=== PATIENT | female | born 1945 | race Caucasian/White ===

== ENCOUNTER 2023-05-10 08:43 | Inpatient (IN) | payer MEDICARE, MEDICAID ==
[~2023-05-10] VITALS: Ht 167.6 cm; Wt 86.8 kg
[2023-05-10] MEDS ORDERED: LORazepam 2 MG TABLET PO PRN (11:00)
[2023-05-10] MEDS ORDERED: HALOPERIDOL 5 MG TABLET PO PRN (11:00)
[2023-05-10 13:11] VITALS: BP 170/93; PULSE 97; RESP 18; TEMP 97
[2023-05-10] MEDS ORDERED: AmLODIPine BESYLATE 5 MG TABLET PO ONE (14:15)
[2023-05-10 15:27] VITALS: RESP 17
[2023-05-10] MEDS: DOCUSATE SODIUM 100 MG CAPSULE PO SCH (18:07)
[2023-05-10] MEDS: CEPHALEXIN MONOHYDRATE 500 MG CAPSULE PO SCH (18:08)
[2023-05-10 20:45] VITALS: BP 139/82; PULSE 89; RESP 18; TEMP 97.4
[2023-05-11] MEDS: DOCUSATE SODIUM 100 MG CAPSULE PO SCH ×3 (09:00→16:56)
[2023-05-11] MEDS: PANTOPRAZOLE SODIUM 40 MG DR TABLET PO SCH ×2 (09:00→10:55)
[2023-05-11] MEDS: AmLODIPine BESYLATE 10 MG TABLET PO SCH ×2 (09:00→10:55)
[2023-05-11] MEDS: CEPHALEXIN MONOHYDRATE 500 MG CAPSULE PO SCH ×4 (09:00→16:55)
[2023-05-11 10:08] VITALS: BP 133/76; PULSE 79; RESP 18; TEMP 97.6
[2023-05-11] MEDS: OLANZapine 2.5 MG TABLET PO SCH ×2 (13:20→21:18)
[2023-05-11 20:35] VITALS: BP 137/87; PULSE 85; RESP 18; TEMP 98.1
[2023-05-11] MEDS: ZOLPIDEM TARTRATE 10 MG TABLET PO PRN (21:18)
[2023-05-12] MEDS: OLANZapine 2.5 MG TABLET PO SCH ×2 (09:01→20:37)
[2023-05-12] MEDS: CEPHALEXIN MONOHYDRATE 500 MG CAPSULE PO SCH (09:02)
[2023-05-12] MEDS: DOCUSATE SODIUM 100 MG CAPSULE PO SCH ×2 (09:08→16:03)
[2023-05-12] MEDS: PANTOPRAZOLE SODIUM 40 MG DR TABLET PO SCH (09:08)
[2023-05-12] MEDS: AmLODIPine BESYLATE 10 MG TABLET PO SCH (09:08)
[2023-05-12 10:29] VITALS: BP 136/90; PULSE 102; RESP 18; TEMP 97.8
[2023-05-12 21:16] VITALS: BP 151/73; PULSE 90; RESP 18; TEMP 97.7
[2023-05-13] MEDS: OLANZapine 2.5 MG TABLET PO SCH ×2 (08:32→20:41)
[2023-05-13] MEDS: PANTOPRAZOLE SODIUM 40 MG DR TABLET PO SCH (08:33)
[2023-05-13] MEDS: AmLODIPine BESYLATE 10 MG TABLET PO SCH (08:33)
[2023-05-13 10:42] VITALS: BP 153/79; PULSE 79; RESP 18; TEMP 98.2
[2023-05-13] MEDS ORDERED: MAGNESIUM HYDROXIDE SUSPENSION 30 ML UDCUP PO PRN (11:45)
[2023-05-13] MEDS ORDERED: PETROLATUM,WHITE 28 GM JELLY TP PRN (11:45)
[2023-05-13] MEDS ORDERED: NICOTINE 14 MG/24 HOUR PATCH TD PRN (11:45)
[2023-05-13] MEDS ORDERED: ALBUTEROL SULFATE HFA 90 MCG/PUFF 8 GM INHALER IH PRN (11:45)
[2023-05-13] MEDS ORDERED: DOCUSATE SODIUM 100 MG CAPSULE PO PRN (11:45)
[2023-05-13] MEDS ORDERED: CloNIDine HCL 0.1 MG TABLET PO PRN (11:45)
[2023-05-13] MEDS ORDERED: ACETAMINOPHEN 325 MG TABLET PO PRN (11:45)
[2023-05-13] MEDS ORDERED: GuaiFENesin/D-METHORPHAN [SUGAR-FREE] 200-20MG/10 ML SYRUP UDCUP PO PRN (11:45)
[2023-05-13] MEDS ORDERED: MAG HYDROX/ALUMINUM HYD/SIMETH ES 30 ML SUSPENSION UDCUP PO PRN (11:45)
[2023-05-13] MEDS ORDERED: ONDANSETRON HCL 4 MG TABLET PO PRN (11:45)
[2023-05-13] MEDS: ZOLPIDEM TARTRATE 10 MG TABLET PO PRN (20:41)
[2023-05-13 21:24] VITALS: BP 141/81; PULSE 97; RESP 18; TEMP 97.3
[2023-05-14 10:23] VITALS: BP 152/66; PULSE 100; RESP 18; TEMP 97.2
[2023-05-14] MEDS: AmLODIPine BESYLATE 10 MG TABLET PO SCH (10:28)
[2023-05-14] MEDS: IBUPROFEN 400 MG TABLET PO PRN (10:28)
[2023-05-14] MEDS: LOPERAMIDE HCL 2 MG CAPSULE PO PRN (10:28)
[2023-05-14] MEDS: OLANZapine 2.5 MG TABLET PO SCH ×2 (10:28→20:50)
[2023-05-14] MEDS: PANTOPRAZOLE SODIUM 40 MG DR TABLET PO SCH (10:28)
[2023-05-14 20:00] VITALS: BP 150/70; PULSE 92; RESP 18; TEMP 97.2
[2023-05-15 09:00] VITALS: BP 149/72; PULSE 97; RESP 18; TEMP 97.6
[2023-05-15] MEDS: PANTOPRAZOLE SODIUM 40 MG DR TABLET PO SCH (10:07)
[2023-05-15] MEDS: AmLODIPine BESYLATE 10 MG TABLET PO SCH (10:07)
[2023-05-15] MEDS: OLANZapine 2.5 MG TABLET PO SCH ×2 (10:07→20:35)
[2023-05-15 17:55] VITALS: BP 149/73; PULSE 102; RESP 18; TEMP 98.9
[2023-05-15] MEDS: LOPERAMIDE HCL 2 MG CAPSULE PO PRN (17:55)
[2023-05-15] MEDS: IBUPROFEN 400 MG TABLET PO PRN (17:55)
[2023-05-15 19:02] VITALS: BP 145/82; PULSE 100; RESP 19; TEMP 98
[2023-05-15 22:01] VITALS: BP 126/75; PULSE 106; RESP 20; TEMP 99.1
[2023-05-16 09:00] VITALS: BP 146/71; PULSE 93; RESP 16; TEMP 97.7
[2023-05-16] MEDS: PANTOPRAZOLE SODIUM 40 MG DR TABLET PO SCH (09:03)
[2023-05-16] MEDS: AmLODIPine BESYLATE 10 MG TABLET PO SCH (09:03)
[2023-05-16] MEDS: OLANZapine 2.5 MG TABLET PO SCH ×2 (09:04→20:37)
[2023-05-16] MEDS: ZOLPIDEM TARTRATE 10 MG TABLET PO PRN (20:37)
[2023-05-16 22:17] VITALS: BP 121/65; PULSE 98; RESP 18; TEMP 97
[2023-05-17] MEDS: AmLODIPine BESYLATE 10 MG TABLET PO SCH (08:39)
[2023-05-17] MEDS: PANTOPRAZOLE SODIUM 40 MG DR TABLET PO SCH (08:40)
[2023-05-17] MEDS: OLANZapine 2.5 MG TABLET PO SCH ×2 (08:40→21:09)
[2023-05-17 20:57] VITALS: BP 151/70; PULSE 98; RESP 18; TEMP 98.6
[2023-05-17] MEDS: ZOLPIDEM TARTRATE 10 MG TABLET PO PRN (21:09)
[2023-05-18 09:08] VITALS: BP 157/83; PULSE 92; RESP 18; TEMP 97.8
[2023-05-18] MEDS: AmLODIPine BESYLATE 10 MG TABLET PO SCH (09:20)
[2023-05-18] MEDS: OLANZapine 2.5 MG TABLET PO SCH ×2 (09:20→20:56)
[2023-05-18] MEDS: PANTOPRAZOLE SODIUM 40 MG DR TABLET PO SCH (09:20)
[2023-05-18] MEDS: ZOLPIDEM TARTRATE 10 MG TABLET PO PRN (20:56)
[2023-05-18 21:22] VITALS: BP 129/69; PULSE 88; RESP 18; TEMP 97.8
[2023-05-19 07:58] LABS: ALBUMIN 2.9 g/dL (3.4-5.0); BILIRUBIN,TOTAL 0.2 mg/dL (0.1-1.0); CALCIUM, TOTAL 9.2 mg/dL (8.8-10.5); CHOL/HDL RATIO 4.2 (3.9-5.7); CREATININE 1.43 mg/dL (0.60-1.30); POTASSIUM 3.8 mmol/L (3.5-5.1); THYROID STIMULATING HORMONE 1.3 uIU/mL (0.36-3.74); TOTAL PROTEIN, SERUM 6.7 g/dL (6.4-8.2)
[2023-05-19 08:00] VITALS: BP 146/67; PULSE 91; RESP 18; TEMP 98.1
[2023-05-19] MEDS: OLANZapine 2.5 MG TABLET PO SCH ×2 (09:45→21:28)
[2023-05-19] MEDS: PANTOPRAZOLE SODIUM 40 MG DR TABLET PO SCH (09:45)
[2023-05-19] MEDS: AmLODIPine BESYLATE 10 MG TABLET PO SCH (09:45)
[2023-05-19 20:45] VITALS: BP 156/67; PULSE 84; RESP 18; TEMP 98
[2023-05-19] MEDS: ZOLPIDEM TARTRATE 10 MG TABLET PO PRN (21:28)
[2023-05-20] MEDS: OLANZapine 2.5 MG TABLET PO SCH ×2 (08:57→21:22)
[2023-05-20] MEDS: PANTOPRAZOLE SODIUM 40 MG DR TABLET PO SCH (09:01)
[2023-05-20] MEDS: AmLODIPine BESYLATE 10 MG TABLET PO SCH (09:01)
[2023-05-20 20:37] VITALS: BP 132/71; PULSE 62; RESP 18; TEMP 98.1
[2023-05-20] MEDS: ZOLPIDEM TARTRATE 10 MG TABLET PO PRN (21:22)
[2023-05-21] MEDS: PANTOPRAZOLE SODIUM 40 MG DR TABLET PO SCH (08:32)
[2023-05-21] MEDS: OLANZapine 2.5 MG TABLET PO SCH ×2 (08:32→21:00)
[2023-05-21] MEDS: AmLODIPine BESYLATE 10 MG TABLET PO SCH (08:32)
[2023-05-21 08:33] VITALS: BP 158/72; PULSE 85; RESP 18; TEMP 97
[2023-05-21 08:39] VITALS: BP 158/72; PULSE 85; RESP 18; TEMP 97
[2023-05-21 20:14] VITALS: BP 134/62; PULSE 89; RESP 17; TEMP 97.8
[2023-05-21] MEDS: ZOLPIDEM TARTRATE 10 MG TABLET PO PRN (21:00)
[2023-05-22] MEDS: PANTOPRAZOLE SODIUM 40 MG DR TABLET PO SCH (08:32)
[2023-05-22] MEDS: AmLODIPine BESYLATE 10 MG TABLET PO SCH (08:32)
[2023-05-22] MEDS: OLANZapine 2.5 MG TABLET PO SCH ×2 (08:32→20:53)
[2023-05-22 11:30] VITALS: BP 145/71; PULSE 89; RESP 18; TEMP 99.9
[2023-05-22] MEDS: ZOLPIDEM TARTRATE 10 MG TABLET PO PRN (20:52)
[2023-05-22 21:30] VITALS: RESP 17
[2023-05-23] MEDS: OLANZapine 2.5 MG TABLET PO SCH ×2 (08:56→21:03)
[2023-05-23] MEDS: AmLODIPine BESYLATE 10 MG TABLET PO SCH (08:57)
[2023-05-23] MEDS: PANTOPRAZOLE SODIUM 40 MG DR TABLET PO SCH (08:57)
[2023-05-23 10:59] VITALS: BP 152/73; PULSE 90; RESP 18; TEMP 98.1
[2023-05-23 20:40] VITALS: BP 148/71; PULSE 88; RESP 18; TEMP 98.3
[2023-05-23] MEDS: ZOLPIDEM TARTRATE 10 MG TABLET PO PRN (21:03)
[2023-05-24 07:42] LABS: CREATININE 1.54 mg/dL (0.60-1.30)
[2023-05-24] MEDS: OLANZapine 2.5 MG TABLET PO SCH ×2 (09:04→21:00)
[2023-05-24] MEDS: PANTOPRAZOLE SODIUM 40 MG DR TABLET PO SCH (09:04)
[2023-05-24] MEDS: AmLODIPine BESYLATE 10 MG TABLET PO SCH (09:04)
[2023-05-24 10:16] VITALS: BP 137/63; PULSE 87; RESP 18; TEMP 97.6
[2023-05-24] MEDS: ZOLPIDEM TARTRATE 10 MG TABLET PO PRN (21:00)
[2023-05-24 21:26] VITALS: BP 127/66; PULSE 88; RESP 18; TEMP 98.9
[2023-05-25 09:37] VITALS: BP 137/81; PULSE 81; RESP 17; TEMP 97.7
[2023-05-25] MEDS: OLANZapine 2.5 MG TABLET PO SCH ×2 (11:38→21:04)
[2023-05-25] MEDS: AmLODIPine BESYLATE 10 MG TABLET PO SCH (11:52)
[2023-05-25] MEDS: PANTOPRAZOLE SODIUM 40 MG DR TABLET PO SCH (11:52)
[2023-05-25] MEDS: ZOLPIDEM TARTRATE 10 MG TABLET PO PRN (21:05)
[2023-05-25 21:06] VITALS: BP 127/68; PULSE 97; RESP 18; TEMP 98.7
[2023-05-26] MEDS: AmLODIPine BESYLATE 10 MG TABLET PO SCH (09:01)
[2023-05-26] MEDS: OLANZapine 2.5 MG TABLET PO SCH ×2 (09:01→21:27)
[2023-05-26] MEDS: PANTOPRAZOLE SODIUM 40 MG DR TABLET PO SCH (09:01)
[2023-05-26 09:16] VITALS: BP 144/89; PULSE 86; RESP 18; TEMP 97.8
[2023-05-26 20:22] VITALS: BP 135/81; PULSE 80; RESP 18; TEMP 97.8
[2023-05-27] MEDS: PANTOPRAZOLE SODIUM 40 MG DR TABLET PO SCH (08:29)
[2023-05-27] MEDS: OLANZapine 2.5 MG TABLET PO SCH ×2 (08:29→20:57)
[2023-05-27] MEDS: AmLODIPine BESYLATE 10 MG TABLET PO SCH (08:29)
[2023-05-27 09:00] VITALS: BP 144/69; PULSE 87; RESP 18; TEMP 98.3
[2023-05-27] MEDS: ZOLPIDEM TARTRATE 10 MG TABLET PO PRN (20:57)
[2023-05-27 21:50] VITALS: TEMP 101.2
[2023-05-27 22:21] VITALS: BP 142/66; PULSE 86; RESP 18; TEMP 100.1
[2023-05-27 23:07] LABS: COVID AG,FIA SOURCE NASAL SWAB
[2023-05-27 23:14] LABS: SARS-COV2 (COVID) ANTIGEN,FIA Negative (Negative)
[2023-05-28 00:30] VITALS: TEMP 98.2
[2023-05-28 06:17] VITALS: TEMP 97.1
[2023-05-28 08:00] VITALS: BP 143/71; PULSE 90; RESP 18; TEMP 98.3
[2023-05-28] MEDS: PANTOPRAZOLE SODIUM 40 MG DR TABLET PO SCH (09:20)
[2023-05-28] MEDS: AmLODIPine BESYLATE 10 MG TABLET PO SCH (09:20)
[2023-05-28] MEDS: OLANZapine 2.5 MG TABLET PO SCH ×2 (09:21→21:14)
[2023-05-28] MEDS: ZOLPIDEM TARTRATE 10 MG TABLET PO PRN (21:14)
[2023-05-28 21:27] VITALS: BP 127/62; PULSE 77; RESP 18; TEMP 98.1
[2023-05-29 08:00] VITALS: BP 140/72; PULSE 95; RESP 16; TEMP 97.6
[2023-05-29] MEDS: AmLODIPine BESYLATE 10 MG TABLET PO SCH (10:35)
[2023-05-29] MEDS: OLANZapine 2.5 MG TABLET PO SCH ×2 (10:35→20:53)
[2023-05-29] MEDS: PANTOPRAZOLE SODIUM 40 MG DR TABLET PO SCH (10:35)
[2023-05-29] MEDS: ZOLPIDEM TARTRATE 10 MG TABLET PO PRN (21:16)
[2023-05-29 21:47] VITALS: BP 141/66; PULSE 87; RESP 18; TEMP 98.3
[2023-05-30 08:36] VITALS: BP 136/80; PULSE 86; RESP 16; TEMP 97.9
[2023-05-30] MEDS: AmLODIPine BESYLATE 10 MG TABLET PO SCH (09:21)
[2023-05-30] MEDS: PANTOPRAZOLE SODIUM 40 MG DR TABLET PO SCH (09:22)
[2023-05-30] MEDS: OLANZapine 2.5 MG TABLET PO SCH ×2 (09:22→21:15)
[2023-05-30 21:12] VITALS: BP 130/67; PULSE 85; RESP 18; TEMP 98
[2023-05-30] MEDS: ZOLPIDEM TARTRATE 10 MG TABLET PO PRN (21:15)
[2023-05-31 07:11] LABS: CALCIUM, TOTAL 9.2 mg/dL (8.8-10.5); CREATININE 1.4 mg/dL (0.60-1.30); POTASSIUM 3.9 mmol/L (3.5-5.1)
[2023-05-31] MEDS: AmLODIPine BESYLATE 10 MG TABLET PO SCH (08:53)
[2023-05-31] MEDS: PANTOPRAZOLE SODIUM 40 MG DR TABLET PO SCH (08:53)
[2023-05-31 09:00] VITALS: BP 145/68; PULSE 92; RESP 18; TEMP 98.1
[2023-05-31] MEDS: OLANZapine 2.5 MG TABLET PO SCH ×2 (12:12→21:11)
[2023-05-31 20:00] VITALS: BP 144/73; PULSE 87; RESP 19; TEMP 98
[2023-06-01 08:00] VITALS: BP 147/79; PULSE 91; RESP 18; TEMP 97.3
[2023-06-01] MEDS: PANTOPRAZOLE SODIUM 40 MG DR TABLET PO SCH (09:36)
[2023-06-01] MEDS: OLANZapine 2.5 MG TABLET PO SCH ×2 (09:36→20:59)
[2023-06-01] MEDS: AmLODIPine BESYLATE 10 MG TABLET PO SCH (09:36)
[2023-06-01 21:30] VITALS: BP 123/64; PULSE 81; RESP 18; TEMP 98.6
[2023-06-02 08:00] VITALS: BP 164/75; PULSE 99; RESP 18; TEMP 97.8
[2023-06-02] MEDS: PANTOPRAZOLE SODIUM 40 MG DR TABLET PO SCH (09:05)
[2023-06-02] MEDS: OLANZapine 2.5 MG TABLET PO SCH ×2 (09:05→20:45)
[2023-06-02] MEDS: AmLODIPine BESYLATE 10 MG TABLET PO SCH (09:05)
[2023-06-02 21:57] VITALS: BP 131/74; PULSE 87; RESP 18; TEMP 98
[2023-06-03] MEDS: AmLODIPine BESYLATE 10 MG TABLET PO SCH (08:57)
[2023-06-03] MEDS: OLANZapine 2.5 MG TABLET PO SCH ×2 (08:58→21:02)
[2023-06-03] MEDS: PANTOPRAZOLE SODIUM 40 MG DR TABLET PO SCH (08:58)
[2023-06-03 10:14] VITALS: BP 138/74; PULSE 90; RESP 18; TEMP 97.2
[2023-06-03 20:00] VITALS: BP 135/81; PULSE 88; RESP 18; TEMP 98.1
[2023-06-04] MEDS: PANTOPRAZOLE SODIUM 40 MG DR TABLET PO SCH (08:34)
[2023-06-04] MEDS: AmLODIPine BESYLATE 10 MG TABLET PO SCH (08:35)
[2023-06-04] MEDS: OLANZapine 2.5 MG TABLET PO SCH ×2 (08:35→20:45)
[2023-06-04 09:08] VITALS: BP 148/81; PULSE 94; RESP 18; TEMP 98.1
[2023-06-04 21:41] VITALS: BP 134/78; PULSE 81; RESP 17; TEMP 98.5
[2023-06-05] MEDS: AmLODIPine BESYLATE 10 MG TABLET PO SCH (08:51)
[2023-06-05] MEDS: PANTOPRAZOLE SODIUM 40 MG DR TABLET PO SCH (08:51)
[2023-06-05] MEDS: OLANZapine 2.5 MG TABLET PO SCH ×2 (08:51→20:50)
[2023-06-05 09:15] VITALS: BP 153/77; PULSE 93; RESP 18; TEMP 97.8
[2023-06-05 21:45] VITALS: BP 136/74; PULSE 89; RESP 18; TEMP 97.1
[2023-06-06] MEDS: PANTOPRAZOLE SODIUM 40 MG DR TABLET PO SCH (08:21)
[2023-06-06] MEDS: AmLODIPine BESYLATE 10 MG TABLET PO SCH (08:21)
[2023-06-06] MEDS: OLANZapine 2.5 MG TABLET PO SCH ×2 (08:21→20:36)
[2023-06-06 15:18] VITALS: BP 165/77; PULSE 110; RESP 18; TEMP 97
[2023-06-06 21:00] VITALS: BP 138/79; PULSE 89; RESP 18; TEMP 97.3
[2023-06-07] MEDS: AmLODIPine BESYLATE 10 MG TABLET PO SCH (10:41)
[2023-06-07] MEDS: OLANZapine 2.5 MG TABLET PO SCH ×2 (10:41→20:59)
[2023-06-07] MEDS: PANTOPRAZOLE SODIUM 40 MG DR TABLET PO SCH (10:41)
[2023-06-07 12:42] VITALS: BP 143/71; PULSE 96; RESP 18; TEMP 97.5
[2023-06-07 20:40] VITALS: BP 120/60; PULSE 89; RESP 18; TEMP 97.7
[2023-06-07] MEDS: ZOLPIDEM TARTRATE 10 MG TABLET PO PRN (20:59)
[2023-06-08 08:00] VITALS: BP 147/69; PULSE 90; RESP 18; TEMP 98
[2023-06-08] MEDS: PANTOPRAZOLE SODIUM 40 MG DR TABLET PO SCH (09:20)
[2023-06-08] MEDS: AmLODIPine BESYLATE 10 MG TABLET PO SCH (09:20)
[2023-06-08] MEDS: OLANZapine 2.5 MG TABLET PO SCH ×2 (09:21→21:06)
[2023-06-08 20:40] VITALS: BP 135/64; PULSE 87; RESP 18; TEMP 98.5
[2023-06-08] MEDS: ZOLPIDEM TARTRATE 10 MG TABLET PO PRN (21:06)
[2023-06-09 02:03] LABS: COVID AG,FIA SOURCE NASAL SWAB
[2023-06-09 02:55] LABS: SARS-COV2 (COVID) ANTIGEN,FIA Negative (Negative)
[2023-06-09 08:00] VITALS: BP 163/80; PULSE 95; RESP 18; TEMP 97.2
[2023-06-09] MEDS: AmLODIPine BESYLATE 10 MG TABLET PO SCH (09:36)
[2023-06-09] MEDS: PANTOPRAZOLE SODIUM 40 MG DR TABLET PO SCH (09:36)
[2023-06-09] MEDS: OLANZapine 2.5 MG TABLET PO SCH ×2 (09:36→20:46)
[2023-06-09 20:00] VITALS: BP 115/53; PULSE 85; RESP 20; TEMP 98.2
[2023-06-10 08:42] VITALS: BP 144/53; PULSE 92; RESP 18; TEMP 97.7
[2023-06-10] MEDS: PANTOPRAZOLE SODIUM 40 MG DR TABLET PO SCH (10:09)
[2023-06-10] MEDS: AmLODIPine BESYLATE 10 MG TABLET PO SCH (10:10)
[2023-06-10] MEDS: OLANZapine 2.5 MG TABLET PO SCH ×2 (10:10→20:05)
[2023-06-10 20:44] VITALS: BP 130/86; PULSE 74; RESP 18; TEMP 97.7
[2023-06-11 08:30] VITALS: BP 155/79; PULSE 85; RESP 18; TEMP 97.9
[2023-06-11] MEDS: AmLODIPine BESYLATE 10 MG TABLET PO SCH (11:07)
[2023-06-11] MEDS: PANTOPRAZOLE SODIUM 40 MG DR TABLET PO SCH (11:07)
[2023-06-11] MEDS: OLANZapine 2.5 MG TABLET PO SCH ×2 (11:07→21:17)
[2023-06-11 20:26] VITALS: BP 145/76; PULSE 80; RESP 18; TEMP 97
[2023-06-12 10:10] VITALS: BP 143/75; PULSE 75; RESP 20; TEMP 98.1
[2023-06-12] MEDS: AmLODIPine BESYLATE 10 MG TABLET PO SCH (10:14)
[2023-06-12] MEDS: PANTOPRAZOLE SODIUM 40 MG DR TABLET PO SCH (10:14)
[2023-06-12] MEDS: OLANZapine 2.5 MG TABLET PO SCH ×2 (10:14→21:23)
[2023-06-12 20:44] VITALS: BP 151/73; PULSE 89; RESP 18; TEMP 97.2
[2023-06-12 21:21] LABS: COVID AG,FIA SOURCE NASAL SWAB
[2023-06-12 21:52] LABS: SARS-COV2 (COVID) ANTIGEN,FIA Negative (Negative)
[2023-06-13] MEDS: OLANZapine 2.5 MG TABLET PO SCH ×2 (08:43→21:14)
[2023-06-13] MEDS: AmLODIPine BESYLATE 10 MG TABLET PO SCH (08:43)
[2023-06-13] MEDS: PANTOPRAZOLE SODIUM 40 MG DR TABLET PO SCH (08:43)
[2023-06-13 08:50] VITALS: BP 164/69; PULSE 87; RESP 18; TEMP 97.6
[2023-06-13 23:00] VITALS: RESP 18
[2023-06-14] MEDS: AmLODIPine BESYLATE 10 MG TABLET PO SCH ×2 (08:05→09:00)
[2023-06-14] MEDS: PANTOPRAZOLE SODIUM 40 MG DR TABLET PO SCH (08:05)
[2023-06-14] MEDS: OLANZapine 2.5 MG TABLET PO SCH ×2 (08:05→21:10)
[2023-06-14 08:10] VITALS: BP 133/54; PULSE 92; RESP 18; TEMP 98.5
[2023-06-14 21:31] VITALS: BP 139/69; PULSE 88; RESP 19; TEMP 98.6
[2023-06-15 09:26] VITALS: BP 158/87; PULSE 92; RESP 18; TEMP 98.6
[2023-06-15] MEDS: OLANZapine 2.5 MG TABLET PO SCH ×2 (09:27→20:49)
[2023-06-15] MEDS: PANTOPRAZOLE SODIUM 40 MG DR TABLET PO SCH (09:27)
[2023-06-15] MEDS: AmLODIPine BESYLATE 10 MG TABLET PO SCH (09:27)
[2023-06-15 19:08] LABS: COVID AG,FIA SOURCE NASAL SWAB
[2023-06-15 19:31] LABS: SARS-COV2 (COVID) ANTIGEN,FIA Negative (Negative)
[2023-06-15 22:53] VITALS: BP 149/84; PULSE 84; RESP 18; TEMP 98.5
[2023-06-16] MEDS: PANTOPRAZOLE SODIUM 40 MG DR TABLET PO SCH (09:31)
[2023-06-16] MEDS: AmLODIPine BESYLATE 10 MG TABLET PO SCH (09:31)
[2023-06-16] MEDS: OLANZapine 2.5 MG TABLET PO SCH ×2 (09:31→21:09)
[2023-06-16 10:53] VITALS: BP 143/68; PULSE 80; RESP 18; TEMP 98.2
[2023-06-16 21:13] VITALS: BP 140/61; PULSE 82; RESP 18; TEMP 97.9
[2023-06-17 08:00] VITALS: BP 148/78; PULSE 91; RESP 20; TEMP 97.7
[2023-06-17] MEDS: AmLODIPine BESYLATE 10 MG TABLET PO SCH (09:43)
[2023-06-17] MEDS: PANTOPRAZOLE SODIUM 40 MG DR TABLET PO SCH (09:43)
[2023-06-17] MEDS: OLANZapine 2.5 MG TABLET PO SCH ×2 (09:43→20:05)
[2023-06-17] MEDS: ZOLPIDEM TARTRATE 10 MG TABLET PO PRN (20:05)
[2023-06-17 20:39] VITALS: RESP 18
[2023-06-18] MEDS: PANTOPRAZOLE SODIUM 40 MG DR TABLET PO SCH (09:20)
[2023-06-18] MEDS: AmLODIPine BESYLATE 10 MG TABLET PO SCH (09:20)
[2023-06-18] MEDS: OLANZapine 2.5 MG TABLET PO SCH ×2 (09:21→21:34)
[2023-06-18 12:02] VITALS: BP 140/70; PULSE 89; RESP 18; TEMP 98.4
[2023-06-18 21:04] VITALS: BP 135/80; PULSE 92; RESP 18; TEMP 97.8
[2023-06-19] MEDS: PANTOPRAZOLE SODIUM 40 MG DR TABLET PO SCH (09:33)
[2023-06-19] MEDS: AmLODIPine BESYLATE 10 MG TABLET PO SCH (09:33)
[2023-06-19] MEDS: OLANZapine 2.5 MG TABLET PO SCH ×2 (09:34→20:54)
[2023-06-19 11:24] VITALS: BP 158/85; PULSE 86; RESP 18; TEMP 97.5
[2023-06-19 23:06] VITALS: BP 138/77; PULSE 84; RESP 18; TEMP 97.8
[2023-06-20 08:00] VITALS: BP 165/70; PULSE 94; RESP 18; TEMP 97.6
[2023-06-20] MEDS: PANTOPRAZOLE SODIUM 40 MG DR TABLET PO SCH (09:33)
[2023-06-20] MEDS: AmLODIPine BESYLATE 10 MG TABLET PO SCH (09:33)
[2023-06-20] MEDS: OLANZapine 2.5 MG TABLET PO SCH ×2 (09:34→20:41)
[2023-06-20 20:15] VITALS: BP 156/74; PULSE 91; RESP 18; TEMP 97.9
[2023-06-21] MEDS: OLANZapine 2.5 MG TABLET PO SCH ×2 (08:50→20:45)
[2023-06-21] MEDS: AmLODIPine BESYLATE 10 MG TABLET PO SCH (08:50)
[2023-06-21] MEDS: PANTOPRAZOLE SODIUM 40 MG DR TABLET PO SCH (08:50)
[2023-06-21 09:00] VITALS: BP 154/66; PULSE 87; RESP 16; TEMP 97.7
[2023-06-21 20:05] VITALS: BP 145/77; PULSE 91; RESP 18; TEMP 97.7
[2023-06-22 08:14] LABS: CALCIUM, TOTAL 9.3 mg/dL (8.8-10.5); CREATININE 1.58 mg/dL (0.60-1.30); POTASSIUM 3.8 mmol/L (3.5-5.1)
[2023-06-22 09:00] VITALS: BP 118/62; PULSE 82; RESP 18; TEMP 97.2
[2023-06-22] MEDS: AmLODIPine BESYLATE 10 MG TABLET PO SCH (09:23)
[2023-06-22] MEDS: PANTOPRAZOLE SODIUM 40 MG DR TABLET PO SCH (09:23)
[2023-06-22] MEDS: OLANZapine 2.5 MG TABLET PO SCH ×2 (09:23→20:22)
[2023-06-22 20:26] VITALS: BP 123/81; PULSE 72; RESP 18; TEMP 98.1
[2023-06-22 20:27] VITALS: BP 120/78; PULSE 88; RESP 19; TEMP 98
[2023-06-23] MEDS: AmLODIPine BESYLATE 10 MG TABLET PO SCH (09:32)
[2023-06-23] MEDS: PANTOPRAZOLE SODIUM 40 MG DR TABLET PO SCH (09:32)
[2023-06-23] MEDS: OLANZapine 2.5 MG TABLET PO SCH ×2 (09:32→20:40)
[2023-06-23 10:58] VITALS: BP 142/67; PULSE 87; RESP 18; TEMP 97.5
[2023-06-23 20:33] VITALS: BP 142/74; PULSE 85; RESP 18; TEMP 98.1
[2023-06-24 09:00] VITALS: BP 133/66; PULSE 80; RESP 17; TEMP 98.4
[2023-06-24] MEDS: OLANZapine 2.5 MG TABLET PO SCH ×2 (09:50→21:08)
[2023-06-24] MEDS: PANTOPRAZOLE SODIUM 40 MG DR TABLET PO SCH (09:51)
[2023-06-24] MEDS: AmLODIPine BESYLATE 10 MG TABLET PO SCH (09:51)
[2023-06-24 22:25] VITALS: BP 126/84; PULSE 85; RESP 18; TEMP 97.8
[2023-06-25 08:00] VITALS: BP 140/65; PULSE 86; RESP 17; TEMP 97.9
[2023-06-25] MEDS: PANTOPRAZOLE SODIUM 40 MG DR TABLET PO SCH (09:44)
[2023-06-25] MEDS: OLANZapine 2.5 MG TABLET PO SCH ×2 (09:45→20:39)
[2023-06-25] MEDS: AmLODIPine BESYLATE 10 MG TABLET PO SCH (09:45)
[2023-06-25 21:46] VITALS: BP 135/68; PULSE 77; RESP 18; TEMP 97.5
[2023-06-26 09:00] VITALS: BP 145/78; PULSE 82; RESP 18; TEMP 97.2
[2023-06-26] MEDS: PANTOPRAZOLE SODIUM 40 MG DR TABLET PO SCH (10:01)
[2023-06-26] MEDS: OLANZapine 2.5 MG TABLET PO SCH ×2 (10:01→20:41)
[2023-06-26] MEDS: AmLODIPine BESYLATE 10 MG TABLET PO SCH (10:01)
[2023-06-26 20:54] VITALS: BP 130/70; PULSE 85; RESP 18; TEMP 97.2
[2023-06-27] MEDS: AmLODIPine BESYLATE 10 MG TABLET PO SCH (09:44)
[2023-06-27] MEDS: OLANZapine 2.5 MG TABLET PO SCH ×2 (09:44→20:27)
[2023-06-27] MEDS: PANTOPRAZOLE SODIUM 40 MG DR TABLET PO SCH (09:44)
[2023-06-27 10:29] VITALS: BP 156/76; PULSE 85; RESP 18; TEMP 97.5
[2023-06-27 20:37] VITALS: BP 144/76; PULSE 88; RESP 18; TEMP 98.1
[2023-06-28 08:00] VITALS: BP 147/68; PULSE 88; RESP 18; TEMP 98
[2023-06-28] MEDS: AmLODIPine BESYLATE 10 MG TABLET PO SCH (09:17)
[2023-06-28] MEDS: PANTOPRAZOLE SODIUM 40 MG DR TABLET PO SCH (09:17)
[2023-06-28] MEDS: OLANZapine 2.5 MG TABLET PO SCH ×2 (09:17→20:58)
[2023-06-28] MEDS: ZOLPIDEM TARTRATE 10 MG TABLET PO PRN (20:58)
[2023-06-28 21:06] VITALS: BP 121/80; PULSE 96; RESP 17; TEMP 97.7
[2023-06-29] MEDS: OLANZapine 2.5 MG TABLET PO SCH ×2 (08:28→21:01)
[2023-06-29] MEDS: AmLODIPine BESYLATE 10 MG TABLET PO SCH (08:28)
[2023-06-29] MEDS: PANTOPRAZOLE SODIUM 40 MG DR TABLET PO SCH (08:28)
[2023-06-29 16:17] VITALS: BP 152/69; PULSE 94; RESP 17; TEMP 97.9
[2023-06-29 20:35] VITALS: BP 129/66; PULSE 89; RESP 17; TEMP 97.7
[2023-06-30 10:02] VITALS: BP 113/84; PULSE 80; RESP 18; TEMP 98.1
[2023-06-30] MEDS: OLANZapine 2.5 MG TABLET PO SCH ×2 (10:04→20:52)
[2023-06-30] MEDS: PANTOPRAZOLE SODIUM 40 MG DR TABLET PO SCH (10:05)
[2023-06-30] MEDS: AmLODIPine BESYLATE 10 MG TABLET PO SCH (10:06)
[2023-06-30 20:13] VITALS: BP 147/60; PULSE 82; RESP 18; TEMP 99.1
[2023-07-01 09:34] VITALS: BP 150/76; PULSE 83; RESP 17; TEMP 97
[2023-07-01] MEDS: AmLODIPine BESYLATE 10 MG TABLET PO SCH (09:51)
[2023-07-01] MEDS: PANTOPRAZOLE SODIUM 40 MG DR TABLET PO SCH (09:51)
[2023-07-01] MEDS: OLANZapine 2.5 MG TABLET PO SCH ×2 (09:51→21:33)
[2023-07-01 20:27] VITALS: BP 146/72; PULSE 83; RESP 16; TEMP 98
[2023-07-02] MEDS: PANTOPRAZOLE SODIUM 40 MG DR TABLET PO SCH (08:08)
[2023-07-02] MEDS: OLANZapine 2.5 MG TABLET PO SCH ×2 (08:08→21:09)
[2023-07-02] MEDS: AmLODIPine BESYLATE 10 MG TABLET PO SCH (08:08)
[2023-07-02 09:13] VITALS: BP 146/80; PULSE 83; RESP 18; TEMP 97.6
[2023-07-02 21:50] VITALS: RESP 18; TEMP 97.4
[2023-07-03] MEDS: OLANZapine 2.5 MG TABLET PO SCH ×2 (09:02→20:39)
[2023-07-03] MEDS: PANTOPRAZOLE SODIUM 40 MG DR TABLET PO SCH (09:02)
[2023-07-03] MEDS: AmLODIPine BESYLATE 10 MG TABLET PO SCH (09:02)
[2023-07-03 10:40] VITALS: BP 121/81; PULSE 81; RESP 18; TEMP 97.7
[2023-07-03 23:23] VITALS: BP 122/78; PULSE 88; RESP 18; TEMP 98.5
[2023-07-04] MEDS: PANTOPRAZOLE SODIUM 40 MG DR TABLET PO SCH (08:46)
[2023-07-04] MEDS: OLANZapine 2.5 MG TABLET PO SCH ×2 (08:46→21:20)
[2023-07-04] MEDS: AmLODIPine BESYLATE 10 MG TABLET PO SCH (08:46)
[2023-07-04 13:03] VITALS: BP 121/81; PULSE 81; RESP 18; TEMP 97.7
[2023-07-04 22:40] VITALS: BP 155/77; PULSE 78; RESP 18; TEMP 97.9
[2023-07-05 08:55] VITALS: BP 131/73; PULSE 99; RESP 20; TEMP 97.7
[2023-07-05] MEDS: PANTOPRAZOLE SODIUM 40 MG DR TABLET PO SCH (09:40)
[2023-07-05] MEDS: OLANZapine 2.5 MG TABLET PO SCH ×2 (09:40→21:43)
[2023-07-05] MEDS: AmLODIPine BESYLATE 10 MG TABLET PO SCH (09:41)
[2023-07-05 20:35] VITALS: BP 136/58; PULSE 83; RESP 16; TEMP 97.8
[2023-07-05] MEDS: ZOLPIDEM TARTRATE 10 MG TABLET PO PRN (21:43)
[2023-07-06] MEDS: DONEPEZIL HCL 10 MG TABLET PO SCH (09:03)
[2023-07-06] MEDS: AmLODIPine BESYLATE 10 MG TABLET PO SCH (09:03)
[2023-07-06] MEDS: PANTOPRAZOLE SODIUM 40 MG DR TABLET PO SCH (09:03)
[2023-07-06] MEDS: OLANZapine 2.5 MG TABLET PO SCH ×2 (09:03→20:30)
[2023-07-06] MEDS: MEMANTINE HCL 5 MG TABLET PO SCH ×2 (09:03→17:22)
[2023-07-06 09:10] VITALS: BP 152/64; PULSE 77; RESP 18; TEMP 97.3
[2023-07-06 21:37] VITALS: BP 149/77; PULSE 80; RESP 18; TEMP 97.3
[2023-07-07 08:45] VITALS: BP 153/81; PULSE 90; RESP 18; TEMP 97.7
[2023-07-07] MEDS: PANTOPRAZOLE SODIUM 40 MG DR TABLET PO SCH (09:59)
[2023-07-07] MEDS: AmLODIPine BESYLATE 10 MG TABLET PO SCH (09:59)
[2023-07-07] MEDS: OLANZapine 2.5 MG TABLET PO SCH ×2 (09:59→20:58)
[2023-07-07] MEDS: MEMANTINE HCL 5 MG TABLET PO SCH ×2 (09:59→17:25)
[2023-07-07] MEDS: DONEPEZIL HCL 10 MG TABLET PO SCH (10:00)
[2023-07-07 20:26] VITALS: BP 142/72; PULSE 72; RESP 18; TEMP 97.3
[2023-07-08] MEDS: OLANZapine 2.5 MG TABLET PO SCH ×2 (09:00→21:28)
[2023-07-08] MEDS: PANTOPRAZOLE SODIUM 40 MG DR TABLET PO SCH (09:00)
[2023-07-08] MEDS: MEMANTINE HCL 5 MG TABLET PO SCH ×2 (09:00→16:11)
[2023-07-08] MEDS: AmLODIPine BESYLATE 10 MG TABLET PO SCH (09:00)
[2023-07-08] MEDS: DONEPEZIL HCL 10 MG TABLET PO SCH (09:00)
[2023-07-08 11:19] VITALS: BP 146/72; PULSE 92; RESP 19; TEMP 96.9
[2023-07-08 21:01] VITALS: BP 131/69; PULSE 80; RESP 18; TEMP 98
[2023-07-09 08:00] VITALS: BP 149/63; PULSE 80; RESP 18; TEMP 98
[2023-07-09] MEDS: PANTOPRAZOLE SODIUM 40 MG DR TABLET PO SCH (09:24)
[2023-07-09] MEDS: AmLODIPine BESYLATE 10 MG TABLET PO SCH (09:24)
[2023-07-09] MEDS: MEMANTINE HCL 5 MG TABLET PO SCH ×2 (09:25→16:19)
[2023-07-09] MEDS: OLANZapine 2.5 MG TABLET PO SCH ×2 (09:25→20:39)
[2023-07-09] MEDS: DONEPEZIL HCL 10 MG TABLET PO SCH (09:25)
[2023-07-09 21:37] VITALS: BP 132/92; PULSE 92; RESP 19; TEMP 97.7
[2023-07-10 09:58] VITALS: BP 162/107; PULSE 96; RESP 18; TEMP 95.7
[2023-07-10] MEDS: MEMANTINE HCL 5 MG TABLET PO SCH ×2 (10:34→18:28)
[2023-07-10] MEDS: PANTOPRAZOLE SODIUM 40 MG DR TABLET PO SCH (10:34)
[2023-07-10] MEDS: AmLODIPine BESYLATE 10 MG TABLET PO SCH (10:34)
[2023-07-10] MEDS: DONEPEZIL HCL 10 MG TABLET PO SCH (10:34)
[2023-07-10] MEDS: OLANZapine 2.5 MG TABLET PO SCH ×2 (10:37→21:14)
[2023-07-10 21:05] VITALS: RESP 19
[2023-07-11] MEDS: PANTOPRAZOLE SODIUM 40 MG DR TABLET PO SCH (09:01)
[2023-07-11] MEDS: DONEPEZIL HCL 10 MG TABLET PO SCH (09:01)
[2023-07-11] MEDS: OLANZapine 2.5 MG TABLET PO SCH ×2 (09:02→20:53)
[2023-07-11] MEDS: AmLODIPine BESYLATE 10 MG TABLET PO SCH (09:02)
[2023-07-11] MEDS: MEMANTINE HCL 5 MG TABLET PO SCH ×2 (09:02→16:24)
[2023-07-11 10:23] VITALS: BP 135/73; PULSE 96; RESP 16; TEMP 96.7
[2023-07-11 22:10] VITALS: BP 135/73; PULSE 81; RESP 18; TEMP 96.8
[2023-07-12 09:37] VITALS: BP 139/94; PULSE 95; RESP 17; TEMP 96.3
[2023-07-12] MEDS: DONEPEZIL HCL 10 MG TABLET PO SCH (09:49)
[2023-07-12] MEDS: MEMANTINE HCL 5 MG TABLET PO SCH ×2 (09:49→16:43)
[2023-07-12] MEDS: OLANZapine 2.5 MG TABLET PO SCH ×2 (09:49→20:56)
[2023-07-12] MEDS: PANTOPRAZOLE SODIUM 40 MG DR TABLET PO SCH (09:49)
[2023-07-12] MEDS: AmLODIPine BESYLATE 10 MG TABLET PO SCH (09:50)
[2023-07-12 22:32] VITALS: BP 142/82; PULSE 82; RESP 18; TEMP 97.5
[2023-07-13] MEDS: PANTOPRAZOLE SODIUM 40 MG DR TABLET PO SCH (08:38)
[2023-07-13] MEDS: MEMANTINE HCL 5 MG TABLET PO SCH ×2 (08:38→17:10)
[2023-07-13] MEDS: OLANZapine 2.5 MG TABLET PO SCH ×2 (08:38→20:29)
[2023-07-13] MEDS: DONEPEZIL HCL 10 MG TABLET PO SCH (08:38)
[2023-07-13] MEDS: AmLODIPine BESYLATE 10 MG TABLET PO SCH (08:38)
[2023-07-13 09:24] VITALS: BP 138/61; PULSE 104; RESP 18; TEMP 97
[2023-07-13 20:19] VITALS: BP 129/71; PULSE 79; RESP 18; TEMP 97.6
[2023-07-14] MEDS: AmLODIPine BESYLATE 10 MG TABLET PO SCH (08:52)
[2023-07-14] MEDS: PANTOPRAZOLE SODIUM 40 MG DR TABLET PO SCH (08:52)
[2023-07-14] MEDS: DONEPEZIL HCL 10 MG TABLET PO SCH (08:52)
[2023-07-14] MEDS: OLANZapine 2.5 MG TABLET PO SCH ×2 (08:52→20:37)
[2023-07-14] MEDS: MEMANTINE HCL 5 MG TABLET PO SCH ×2 (08:52→16:05)
[2023-07-14 09:30] VITALS: BP 167/73; PULSE 92; RESP 18; TEMP 97
[2023-07-14 21:24] VITALS: BP 142/60; PULSE 73; RESP 17; TEMP 97.5
[2023-07-15] MEDS: MEMANTINE HCL 5 MG TABLET PO SCH ×2 (09:03→16:13)
[2023-07-15] MEDS: DONEPEZIL HCL 10 MG TABLET PO SCH (09:03)
[2023-07-15] MEDS: OLANZapine 2.5 MG TABLET PO SCH ×2 (09:03→21:21)
[2023-07-15] MEDS: PANTOPRAZOLE SODIUM 40 MG DR TABLET PO SCH (09:04)
[2023-07-15] MEDS: AmLODIPine BESYLATE 10 MG TABLET PO SCH (09:04)
[2023-07-15 10:40] VITALS: BP 157/73; PULSE 89; RESP 18; TEMP 97.2
[2023-07-15 20:32] VITALS: BP 140/69; PULSE 78; RESP 18; TEMP 97.9
[2023-07-16 08:00] VITALS: BP 127/53; PULSE 87; RESP 18; TEMP 97.7
[2023-07-16] MEDS: MEMANTINE HCL 5 MG TABLET PO SCH ×2 (11:10→17:18)
[2023-07-16] MEDS: OLANZapine 2.5 MG TABLET PO SCH ×2 (11:10→20:23)
[2023-07-16] MEDS: DONEPEZIL HCL 10 MG TABLET PO SCH (11:10)
[2023-07-16] MEDS: AmLODIPine BESYLATE 10 MG TABLET PO SCH (11:11)
[2023-07-16] MEDS: PANTOPRAZOLE SODIUM 40 MG DR TABLET PO SCH (11:12)
[2023-07-16 20:37] VITALS: BP 140/67; PULSE 81; RESP 18; TEMP 98
[2023-07-17 08:00] VITALS: BP 165/76; PULSE 79; RESP 17; TEMP 98
[2023-07-17] MEDS: MEMANTINE HCL 5 MG TABLET PO SCH ×2 (09:40→18:05)
[2023-07-17] MEDS: DONEPEZIL HCL 10 MG TABLET PO SCH (09:41)
[2023-07-17] MEDS: OLANZapine 2.5 MG TABLET PO SCH ×2 (09:41→20:17)
[2023-07-17] MEDS: AmLODIPine BESYLATE 10 MG TABLET PO SCH (09:42)
[2023-07-17] MEDS: PANTOPRAZOLE SODIUM 40 MG DR TABLET PO SCH (09:42)
[2023-07-17 20:18] VITALS: BP 143/62; PULSE 79; RESP 18; TEMP 98.4
[2023-07-18] MEDS: AmLODIPine BESYLATE 10 MG TABLET PO SCH (09:38)
[2023-07-18] MEDS: OLANZapine 2.5 MG TABLET PO SCH ×2 (09:38→21:08)
[2023-07-18] MEDS: MEMANTINE HCL 5 MG TABLET PO SCH ×2 (09:38→16:44)
[2023-07-18] MEDS: DONEPEZIL HCL 10 MG TABLET PO SCH (09:38)
[2023-07-18] MEDS: PANTOPRAZOLE SODIUM 40 MG DR TABLET PO SCH (09:38)
[2023-07-18 10:24] VITALS: BP 143/65; PULSE 93; RESP 18; TEMP 96.8
[2023-07-18 21:54] VITALS: BP 127/73; PULSE 78; RESP 18; TEMP 98.2
[2023-07-19] MEDS: AmLODIPine BESYLATE 10 MG TABLET PO SCH (09:04)
[2023-07-19] MEDS: OLANZapine 2.5 MG TABLET PO SCH ×2 (09:05→20:46)
[2023-07-19] MEDS: PANTOPRAZOLE SODIUM 40 MG DR TABLET PO SCH (09:05)
[2023-07-19] MEDS: MEMANTINE HCL 5 MG TABLET PO SCH ×2 (09:05→16:57)
[2023-07-19] MEDS: DONEPEZIL HCL 10 MG TABLET PO SCH (09:06)
[2023-07-19 10:19] VITALS: BP 143/65; PULSE 92; RESP 18; TEMP 97.7
[2023-07-19 21:43] VITALS: RESP 18
[2023-07-20 08:38] VITALS: BP 127/58; PULSE 81; RESP 17; TEMP 97.5
[2023-07-20] MEDS: OLANZapine 2.5 MG TABLET PO SCH ×2 (09:04→21:26)
[2023-07-20] MEDS: DONEPEZIL HCL 10 MG TABLET PO SCH (09:04)
[2023-07-20] MEDS: MEMANTINE HCL 5 MG TABLET PO SCH ×2 (09:04→16:24)
[2023-07-20] MEDS: AmLODIPine BESYLATE 10 MG TABLET PO SCH (09:05)
[2023-07-20] MEDS: PANTOPRAZOLE SODIUM 40 MG DR TABLET PO SCH (09:05)
[2023-07-20 20:56] VITALS: RESP 18
[2023-07-21 09:24] VITALS: BP 158/75; PULSE 84; RESP 18; TEMP 97.7
[2023-07-21] MEDS: OLANZapine 2.5 MG TABLET PO SCH (11:15)
[2023-07-21] MEDS: AmLODIPine BESYLATE 10 MG TABLET PO SCH (11:15)
[2023-07-21] MEDS: PANTOPRAZOLE SODIUM 40 MG DR TABLET PO SCH (11:15)
[2023-07-21] MEDS: MEMANTINE HCL 5 MG TABLET PO SCH (11:15)
[2023-07-21] MEDS: DONEPEZIL HCL 10 MG TABLET PO SCH (11:15)
[2023-07-21] MEDS ORDERED: OLAN2.5T29 PO ×2 (12:39→17:51)
[2023-07-21] MEDS ORDERED: DONE-51 PO ×2 (12:44→17:51)
[2023-07-21] MEDS ORDERED: AMLO-258 PO ×2 (12:44→17:51)
[2023-07-21] MEDS ORDERED: MEMA5 PO ×2 (12:44→17:51)
[2023-07-21] MEDS ORDERED: PANT-31 PO ×2 (12:46→17:51)
== END 2023-07-21 15:55 | disposition home or self-care (01) | DRG 885 ==
LOC: 3EX 12:55 → 3EI 06-12 17:55 → 3EX 06-20 16:06
PROVIDERS: ADMIT Psychiatry & Neurology Child & Adolescent Psychiatry; ATTEND Psychiatry & Neurology Child & Adolescent Psychiatry
PROC: GZHZZZZ Group Psychotherapy (ICD-10-PCS; principal; 2023-05-12)
DX: F25.1 Schizoaffective disorder, depressive type (principal); N17.9 Acute kidney failure, unspecified; N39.0 Urinary tract infection, site not specified; Z59.00 Homelessness unspecified; I10 Essential (primary) hypertension; G30.9 Alzheimer's disease, unspecified; F25.0 Schizoaffective disorder, bipolar type; F02.80 Dementia in other diseases classified elsewhere, unspecified severity, without behavioral disturbance, psychotic disturbance, mood disturbance, and anxiety; Z20.822 Contact with and (suspected) exposure to COVID-19
CPT/HCPCS: 80048; 80053; 80061; 83036; 84443; 84481; G0378